=== PATIENT | female | born 1945 | race Caucasian/White ===

== ENCOUNTER 2023-01-04 12:38 | Outpatient (CLI) | payer MEDICARE, OTHER, SELFPAY | END 2023-01-04 12:39 | disposition home or self-care (01) | LOC: WOUND 12:41 | PROVIDERS: PCP Family Medicine; Visit Provider Surgery | DX: I87.311 Chronic venous hypertension (idiopathic) with ulcer of right lower extremity (principal); L97.811 Non-pressure chronic ulcer of other part of right lower leg limited to breakdown of skin; J44.9 Chronic obstructive pulmonary disease, unspecified; Z99.81 Dependence on supplemental oxygen | CPT/HCPCS: 97597; 99203 ==

== ENCOUNTER 2023-01-11 15:35 | Outpatient (CLI) | payer MEDICARE, OTHER, SELFPAY | END 2023-01-11 15:36 | disposition home or self-care (01) | PROVIDERS: PCP Family Medicine; Visit Provider Surgery | DX: I87.311 Chronic venous hypertension (idiopathic) with ulcer of right lower extremity (principal); L97.812 Non-pressure chronic ulcer of other part of right lower leg with fat layer exposed; J44.9 Chronic obstructive pulmonary disease, unspecified; Z99.81 Dependence on supplemental oxygen | CPT/HCPCS: 11042 ==

== ENCOUNTER 2023-04-08 15:37 | Inpatient (IN) | payer MEDICARE, OTHER, SELFPAY ==
[2023-04-08] VITALS (18 sets, daily range): BP systolic 80–114; BP diastolic 41–56; PULSE 57–73; RESP 16–22; TEMP 36.2–36.6; O2SAT 92–99; BMI 19.8; BMI 18.7
--- NOTE | 2023-04-08 16:12 | ED_ITS ---
HPI - General Adult General Time Seen by Provider: 16:13 Date Seen: 04/08/23 Chief complaint: Unspecified Complaint, Adult Stated complaint: Awful pain on butt Time Seen by Provider: 04/08/23 16:05 Source: patient and RN notes reviewed Mode of arrival: ambulatory Limitations: no limitations History of Present Illness HPI narrative: Princess is a 77-year-old female coming in with rectal pain that she states will not go away. Sometimes it is worse than others but there is baseline pain. This is not allowing her to sleep. It has been present for few days now. She does endorse that she is still defecating but there is some increased pain with this. Appetite is diminished because of her pain. Denies any nausea or vomiting. Does not really feel any abdominal pain per se. Has had colonoscopies before but very remotely. No blood in the stool. When the pain has been bad she has felt sweaty and then got chills but no documented fever. Arrival blood pressure was lower, looked at her old records and 2020 blood pressures were in the 120s. She is sitting up on the edge of the bed and is not symptomatic with this blood pressure at this time. She feels rectal pressure no matter what she does. She is oxygen-dependent COPD. Onset (ago): day(s) Related Data Home Medications Medication Instructions Recorded Confirmed albuterol sulfate 90 mcg/actuation 1 - 2 puff inhalation Q4H PRN 04/08/23 04/08/23 aerosol inhaler (Ventolin HFA) dyspnea atorvastatin 20 mg tablet 20 mg PO QPM 04/08/23 04/08/23 budesonide-formoterol HFA 160 2 puff inhalation BID 04/08/23 04/08/23 mcg-4.5 mcg/actuation aerosol inhaler (Symbicort) doxazosin 4 mg tablet 4 mg PO QPM 04/08/23 04/08/23 furosemide 20 mg tablet 20 mg PO QAM 04/08/23 04/08/23 latanoprost 0.005 % eye drops 1 drp ophthalmic (eye) QPM 04/08/23 04/08/23 lisinopril 20 mg tablet 20 mg PO DAILY 04/08/23 04/08/23 omeprazole 40 mg capsule,delayed 40 mg PO DAILY 04/08/23 04/08/23 release spironolactone 25 mg tablet 12.5 mg PO QAM 04/08/23 04/08/23 tramadol 50 mg tablet 50 mg PO 3XD PRN 04/08/23 04/08/23 Allergies Allergy/AdvReac Type Severity Reaction Status Date / Time codeine AdvReac Verified 04/08/23 16:00 Review of Systems Status of ROS: Reports: 6 or more systems reviewed and unremarkable except as noted in History and below Exam Const: Vital Signs, click to edit/add: Vital Signs - 24 hr 04/08/23 16:02 Temperature 97.1 F L Pulse Rate [Right Pulse Oximeter] 62 Respiratory Rate 22 Blood Pressure [Ri ght Upper Arm] 89/52 L Pulse Oximetry 93 Oxygen Delivery Me thod Nasal Cannula Oxygen Flow Rate 2 Documenting provider has reviewed patient's vital signs: yes Common normals: no apparent distress, oriented x3, no limitations and alert General appearance: cooperative, comfortable, well kempt, well developed and frail appearing Nutritional appearance: thin HENMT: Common normals: normocephalic, head/scalp atraumatic, hearing grossly normal bilaterally and external nose normal Head and scalp: normocephalic and atraumatic Face and sinus: normal facial exam Nose: external nose normal Eye: Common normals: PERRL, EOMs intact bilaterally, conjunctivae normal and no scleral icterus Conjunctiva: conjunctiva(e) normal Pupil: PERRL Neck & C-Spine: Common normals: full ROM, no lymphadenopathy, supple, no meningeal signs, no JVD and thyroid normal Thyroid: thyroid normal Resp: Common normals: normal respiratory effort, no retractions and no use of accessory muscles Other: Has some end-expiratory wheezing listening to her right side, more diminished breath sounds without wheezing on the left. Cardio: Common normals: no JVD Other: Heart sounds are quite distant, sounds regular, do not hear any murmur. GI: Common normals: Normal to inspection, nondistended, normoactive bowel sounds present, soft to palpation, non-tender, no hepatosplenomegaly and no masses Palpation: soft and no hepatosplenomegaly Other: Has some stool smearing in the gluteal region, anus appears normal. She has good rectal tone, complains of pain when I do the digital rectal exam but feel no masses in the vault. Stool appears nonbloody. Has atrophic labia majora, no visible external abnormality in the perineum. Extremity: Common normals: no calf tenderness and no pedal edema Neuro: Common normals: oriented x3 Sensorium/orientation: alert Meningeal signs: no meningeal signs Psych: Appearance: well kempt Course Course Hospital Course: Patient is complaining of significant pain, will establish an IV, give her 250 mL fluid bolus, initiate some low-dose fentanyl, 4 mg IV Zofran for premedication for nausea from the fentanyl. Will be proceeding with CT abdomen pelvis to rule out any intra-abdominal pathology. Will get full complement of labs. Reevaluation(s) Time of Reevaluation #1: 19:50 Reevaluation #1: Have reviewed with patient and her son the hyponatremia. She admits she has been feeling a little wobbly but not necessarily weak. Maybe balance has been a little more off as of late. Fentanyl did help a bit with her rectal pain, it has come back though. Did discuss trying an Enemeez to see if the lidocaine might make the rectal pain go away. Might be something we could at least try. She is able to get another dose of IV fentanyl at this time if wanted. I will talk to the hospitalist about admission given the low sodium. The CT is not showing any reason for the rectal pain. She has not given us urinalysis yet, or still waiting to collect stool to the fecal occult blood. Consultations Consultation #1: Have reviewed with the hospitalist. Dr. Chamberlain does accept. She was able to see in the records a sodium just over 3 months ago was 135. She has no new or hemoglobin than the 1 I was able to fine from 10/28/2020 which was 12.2. She was able see in the records a documentation of a flexible sigmoidoscopy done in 2000 which was done elsewhere. There is no up-to-date stool studies for blood or colonoscopy that she can see, just many canceled orders presumably from the patient not following up. Discussed my thought about trying an Enemeez with a lidocaine in it to see if it would clear the rectal pain for the patient. Dr. Chamberlain thinks that would be reasonable to try. She does accept this patient for hyponatremia. Time: 19:57 Vital Signs Vital signs: Initial Vital Signs Temperature 97.1 F L 04/08/23 16:02 Temperature Source Temporal Artery Scan 04/08/23 16:02 Pulse Rate 62 04/08/23 16:02 Respiratory Rate 22 04/08/23 16:02 Blood Pressure 89/52 L 04/08/23 16:02 Blood Pressure Mean 64 L 04/08/23 16:02 Blood Pressure Position Sitting 04/08/23 16:02 Pulse Oximetry 93 04/08/23 16:02 Oxygen Delivery Method Nasal Cannula 04/08/23 16:02 Oxygen Flow Rate 2 04/08/23 16:02 Vital Signs Temperature 97.1 F L 04/08/23 16:02 Pulse Rate 62 04/08/23 16:02 Respiratory Rate 22 04/08/23 16:02 Blood Pressure 89/52 L 04/08/23 16:02 Pulse Oximetry 93 04/08/23 16:02 Oxygen Delivery Method Nasal Cannula 04/08/23 16:02 Oxygen Flow Rate 2 04/08/23 16:02 Temperature 97.1 F L 04/08/23 16:02 Pulse Rate 62 04/08/23 16:02 Respiratory Rate 22 04/08/23 16:02 Blood Pressure 89/52 L 04/08/23 16:02 Pulse Oximetry 93 04/08/23 16:02 Oxygen Delivery Method Nasal Cannula 04/08/23 16:02 Oxygen Flow Rate 2 04/08/23 16:02 Medical Decision Making Lab Data Lab results reviewed: Yes I reviewed the patient's lab results Labs: Lab Results 04/08/23 Range/Units 16:30 WBC 7.27 (4.50-11.00) K/uL RBC 3.62 L (4.00-5.20) m/uL Hgb 10.7 L (12.0-16.0) gm/dL Hct 33.9 (33.0-51.0) % MCV 94 (80-100) fL MCH 30 (26-34) pg MCHC 32 (32-36) gm/dL RDW Coeff of Tonie 12.2 (11.5-15.5) % Plt Count 321 (140-440) K/uL Neut % (Auto) 84.6 H (42.0-72.0) % Lymph % (Auto) 5.8 L (20-44) % [place] % (Auto) 8.8 (0.0-11.0) % Eos % (Auto) 0.4 (0.0-7.0) % Baso % (Auto) 0.3 (0.0-3.0) % Neut # (Auto) 6.20 (1.7-7.0) K/uL Lymph # (Auto) 0.40 L (0.90-2.90) K/uL [place] # (Auto) 0.60 (0.00-0.90) K/UL Eos # (Auto) 0.03 (0.00-0.50) K/uL Baso # (Auto) 0.02 (0.00-0.30) K/uL Abs Immat Gran (auto) 0.01 (0.00-0.30) K/uL Imm/Tot Granulo (auto) 0.1 % VBG pH 7.363 (7.32-7.43) VBG pCO2 79 H* (40-50) mmHG VBG pO2 50.5 H (25-47) mmHG VBG HCO3 45 H (21-28) mmol/L Sodium 121 L* (135-149) mmol/L Potassium 4.7 (3.6-5.1) mmol/L Chloride 76 L (96-114) mmol/L Carbon Dioxide 40 H (20-32) mmol/L BUN 15 (7-30) mg/dL Creatinine 0.4 L (0.5-1.5) mg/dL Estimated Creat Clear 37.59 Estimated GFR 103 ml/min Glucose 95 (60-115) mg/dL Lactate 0.7 (0.5-1.9) mmol/L Calcium 9.2 (8.4-10.6) mg/dL Total Bilirubin 0.3 (0.1-1.5) mg/dL AST 31 (12-35) U/L ALT 26 (4-35) U/L Alkaline Phosphatase 83 (40-150) U/L C-Reactive Protein 1.1 H (0.5-1.0) mg/dL Total Protein 6.1 (6.0-8.3) g/dL Albumin 3.4 (3.3-5.0) g/dL Imaging Data CT scan - abdomen: Attestation: I have reviewed the pertinent imaging results. Radiologist's impression: Patient: PRINCESS MARIE Facility:?[facility] Patient ID:?[id number] Site Patient ID:?[id number]. Site :?[id number] Study:?CT Abdomen/Pelvis W/ 53CC [id number]/22/2023 6:04:12 PM Ordering Physician:Rigo Herndon Final Report: INDICATION: Rectal pain TECHNIQUE: CT abdomen and pelvis acquired with 53 mL Isovue 370 IV contrast. COMPARISON: None. FINDINGS: Lower chest: Emphysema. Liver: Unremarkable. Normal in size and attenuation. No masses. Gallbladder and bile ducts: Unremarkable. No stones or inflammation. No biliary dilatation. Pancreas: Unremarkable. No mass or inflammation. Spleen: Unremarkable. Normal in size. No masses. Adrenal glands: Unremarkable. No nodules. Kidneys: Dilated right renal pelvis and calices. UPJ obstruction suspected. Benign-appearing right renal cyst. GI tract: Unremarkable. Normal in caliber. No sign of mass or inflammation. Normal appendix. Vasculature: Atherosclerosis. Mesenteric arteries are patent. Lymph nodes: No lymphadenopathy. Omentum/Peritoneum/Abdominal Wall: Unremarkable. No sign of mass or infiltration. No free air or significant free fluid. Pelvis: Unremarkable. Bones: Unremarkable for age. IMPRESSION: 1. No acute findings. 2. Possible right kidney UPJ obstruction. Please note that all CT scans at this facility use dose modulation, iterative reconstruction, and/or weight-based dosing when appropriate to reduce radiation dose to as low as reasonably achievable. Dictated by Darrion Kyle MD @ 04/08/2023 6:36:13 PM (Electronic Signature) Chest x-ray: Attestation: I have reviewed the pertinent imaging results. My impression: Appreciate hyperinflation of her lungs but no acute pathology, no pneumonia. Await Radiology over-read. Radiologist's impression: Patient: PRINCESS MARIE Facility:?[facility] Patient ID:?[id number] Site Patient ID:?[id number]. Site :?[id number] Study:?XRay Chest Portable-04/08/2023 4:56:23 PM Ordering Physician:Rigo Hrendon Final Report: INDICATION: Wheezing. TECHNIQUE: Chest 1 views. COMPARISON: October 31, 2020. FINDINGS: Cardiovascular and mediastinum: Heart size and vasculature are normal in caliber and appearance. Lungs and pleural spaces: Hyperinflation. Bibasilar atelectasis/scarring. No sign of infiltrate or mass. No sign of pleural effusion. No pneumothorax. Bones and soft tissues: No significant findings. IMPRESSION: COPD. No acute or significant findings. Dictated by Joshua Win MD @ 04/08/2023 5:14:35 PM (Electronic Signature) Critical Care Time Critical Care Time Critical Care Time: No Discharge Plan Discharge Clinical Impression: Rectal pain, Acute hyponatremia Patient Disposition: Admitted As Observation Condition: Unchanged Prescriptions: No Action latanoprost 0.005 % drops 1 drp ophthalmic (eye) QPM atorvastatin 20 mg tablet 20 mg PO QPM lisinopril 20 mg tablet 20 mg PO DAILY omeprazole 40 mg capsule,delayed release(DR/EC) 40 mg PO DAILY tramadol 50 mg tablet 50 mg PO 3XD PRN spironolactone 25 mg tablet 12.5 mg PO QAM doxazosin 4 mg tablet 4 mg PO QPM furosemide 20 mg tablet 20 mg PO QAM albuterol sulfate [Ventolin HFA] 90 mcg/actuation HFA aerosol inhaler 1 - 2 puff INHALATION Q4H PRN (Reason: dyspnea) budesonide-formoterol [Symbicort] 160-4.5 mcg/actuation HFA aerosol inhaler 2 puff INHALATION BID Follow Up/Referrals: Reji Kern MD [Primary Care Provider] -
--- NOTE | 2023-04-08 16:18 | CRLHL7_ITS ---
For Patients: As a result of the Century Cures Act, medical imaging exams and procedure reports are released immediately into your electronic medical record. You may view this report before your referring provider. If you have questions, please contact your health care provider. INDICATION: Wheezing. TECHNIQUE: Chest 1 views. COMPARISON: October 31, 2020. FINDINGS: Cardiovascular and mediastinum: Heart size and vasculature are normal in caliber and appearance. Lungs and pleural spaces: Hyperinflation. Bibasilar atelectasis/scarring. No sign of infiltrate or mass. No sign of pleural effusion. No pneumothorax. Bones and soft tissues: No significant findings. IMPRESSION: COPD. No acute or significant findings. Dictated by Joshua Win MD @ 04/08/2023 5:14:35 PM (Electronically Signed)
--- NOTE | 2023-04-08 16:18 | CRLHL7_ITS ---
For Patients: As a result of the Century Cures Act, medical imaging exams and procedure reports are released immediately into your electronic medical record. You may view this report before your referring provider. If you have questions, please contact your health care provider. INDICATION: Rectal pain TECHNIQUE: CT abdomen and pelvis acquired with 53 mL Isovue 370 IV contrast. COMPARISON: None. FINDINGS: Lower chest: Emphysema. Liver: Unremarkable. Normal in size and attenuation. No masses. Gallbladder and bile ducts: Unremarkable. No stones or inflammation. No biliary dilatation. Pancreas: Unremarkable. No mass or inflammation. Spleen: Unremarkable. Normal in size. No masses. Adrenal glands: Unremarkable. No nodules. Kidneys: Dilated right renal pelvis and calices. UPJ obstruction suspected. Benign-appearing right renal cyst. GI tract: Unremarkable. Normal in caliber. No sign of mass or inflammation. Normal appendix. Vasculature: Atherosclerosis. Mesenteric arteries are patent. Lymph nodes: No lymphadenopathy. Omentum/Peritoneum/Abdominal Wall: Unremarkable. No sign of mass or infiltration. No free air or significant free fluid. Pelvis: Unremarkable. Bones: Unremarkable for age. IMPRESSION: 1. No acute findings. 2. Possible right kidney UPJ obstruction. Please note that all CT scans at this facility use dose modulation, iterative reconstruction, and/or weight-based dosing when appropriate to reduce radiation dose to as low as reasonably achievable. Dictated by Darrion Kyle MD @ 04/08/2023 6:36:13 PM (Electronically Signed)
[2023-04-08 16:40] LABS: Basophils Absolute Auto 0.02 K/uL (0.00-0.30); Basophils Percent Auto 0.3 % (0.0-3.0); Eosinophils Absolute Auto 0.03 K/uL (0.00-0.50); Eosinophils Percent Auto 0.4 % (0.0-7.0); Hematocrit 33.9 % (33.0-51.0); Hemoglobin* 10.7 gm/dL (12.0-16.0); Immature Granulocytes Abs Auto 0.01 K/uL (0.00-0.30); Immature Granulocytes Pct Auto 0.1 %; Lymphocytes Percent Auto 5.8 % (20-44); Mean Corpuscular HGB Conc 32 gm/dL (32-36); Mean Corpuscular Hemoglobin 30 pg (26-34); Mean Corpuscular Volume 94 fL (80-100); Monocytes Percent Auto 8.8 % (0.0-11.0); Neutrophils Percent Auto 84.6 % (42.0-72.0); Platelet Count* 321 K/uL (140-440); RDW Coefficient of Variation % 12.2 % (11.5-15.5); Red Blood Count 3.62 m/uL (4.00-5.20); White Blood Count* 7.27 K/uL (4.50-11.00)
[2023-04-08 16:42] LABS: HCO3 VBG 45 mmol/L (21-28); Lactate* 0.7 mmol/L (0.5-1.9); PO2 VBG 50.5 mmHG (25-47); pH VBG 7.363 (7.32-7.43)
[2023-04-08] MEDS: 0.9 % SODIUM CHLORIDE 250 ml 250 ML IV (16:47)
[2023-04-08] MEDS: fentaNYL 100 MCG/2 ML inj 25 MCG IVP ×2 (16:48→20:23)
[2023-04-08] MEDS: ONDANSETRON 2 MG/ML inj 4 MG IVP (16:48)
[2023-04-08 16:51] LABS: PCO2 VBG 79 mmHG (40-50)
[2023-04-08 16:54] LABS: Slide Review Reflex No
[2023-04-08 17:15] LABS: Albumin* 3.4 g/dL (3.3-5.0)
[2023-04-08 17:16] LABS: Chloride* 76 mmol/L (96-114); Potassium* 4.7 mmol/L (3.6-5.1)
[2023-04-08 17:18] LABS: Aspartate Amino Transferase* 31 U/L (12-35); Bilirubin Total* 0.3 mg/dL (0.1-1.5); Creatinine* 0.4 mg/dL (0.5-1.5); Est. Creatinine Clearance* 37.59; Estimated Glomerular Filt Rate 103 ml/min; Total Protein* 6.1 g/dL (6.0-8.3)
[2023-04-08 17:19] LABS: Alanine Aminotransferase* 26 U/L (4-35); Alkaline Phosphatase* 83 U/L (40-150); Blood Urea Nitrogen* 15 mg/dL (7-30); Calcium* 9.2 mg/dL (8.4-10.6); Glucose* 95 mg/dL (60-115)
[2023-04-08 17:21] LABS: Sodium* 121 mmol/L (135-149)
--- NOTE | 2023-04-08 17:21 | ED.NURSE ---
Call from lab for critical result: sodium 121. and RN notified.
[2023-04-08 17:23] LABS: C Reactive Protein* 1.1 mg/dL (0.5-1.0)
[2023-04-08 17:25] LABS: Carbon Dioxide* 40 mmol/L (20-32)
[2023-04-08] MEDS: DOCUSATE SODIUM/BENZOCAINE 5 ML ENEMA PR (20:23)
--- NOTE | 2023-04-08 21:22 | P.IMHP_ITS ---
Hospitalist- H&P: HPI History of Present Illness Time Seen by Provider: 21:22 Date Seen: 04/08/23 Chief complaint: Awful pain on butt Narrative: Princess Jones is a 77 year old female who is oxygen dependent for COPD who presented through the ER for rectal pain and was found to have low sodium. She started having a constant, sharp pain in her rectum a few days ago. She does not recall anything that started it, and she denies anything that makes it better or worse, although the rectal exam in the ER caused her a bit of pain. When she defecates over the last few days, she feels hot and sweaty. She denies change of stool. She denies constipation or diarrhea. Denies hemorrhoids, melena or hematochezia. She recalls having a colonoscopy through [facility] 5-10 years ago, and thinks it was unremarkable. She does not know if it was recommended for her to have any more. She denies any recent illness, focal numbness, weakness or tingling. She has not had any diet or medication changes. When the rectal pain started a few days ago, she started to feel wobbly and like I was weak. Review of Systems Status of ROS: Reports: 10 or more systems reviewed and unremarkable except as noted in History and below [facility] Medical History (Updated 04/08/23 @ 23:22 by Addie Chamberlain MD) Bilateral carotid bruits ?R09.89 - Other specified symptoms and signs involving the circulatory and respiratory systems (ICD-10) Oxygen dependent ?Z99.81 - Dependence on supplemental oxygen (ICD-10) Bilateral lower extremity edema ?R60.0 - Localized edema (ICD-10) Gastric ulcer ?K25.9 - Gastric ulcer, unspecified as acute or chronic, without hemorrhage or perforation (ICD-10) Impaired fasting blood sugar ?R73.01 - Impaired fasting glucose (ICD-10) COPD (chronic obstructive pulmonary disease) ?J44.9 - Chronic obstructive pulmonary disease, unspecified (ICD-10) Osteoporosis ?M81.0 - Age-related osteoporosis without current pathological fracture (ICD- 10) Amblyopia ?H53.009 - Unspecified amblyopia, unspecified eye (ICD-10) Left bundle branch block ?I44.7 - Left bundle-branch block, unspecified (ICD-10) Essential hypertension ?I10 - Essential (primary) hypertension (ICD-10) Surgical History (Updated 04/08/23 @ 21:15 by Addie Chamberlain MD) H/O section ?Z98.891 - History of uterine scar from previous surgery (ICD-10) Hx of tonsillectomy ?Z90.89 - Acquired absence of other organs (ICD-10) H/O: hysterectomy ?Z90.710 - Acquired absence of both cervix and uterus (ICD-10) Hx of appendectomy ?Z90.49 - Acquired absence of other specified parts of digestive tract (ICD- 10) H/O flexible sigmoidoscopy (~2000) ?Z98.890 - Other specified postprocedural states (ICD-10) History of esophagogastroduodenoscopy (EGD) ?Z98.890 - Other specified postprocedural states (ICD-10) History of open reduction and internal fixation (ORIF) procedure ?Z98.890 - Other specified postprocedural states (ICD-10) Family History (Updated 04/08/23 @ 21:16 by Addie Chamberlain MD) Maternal Grandmother Colon cancer Mother Colon cancer Myocardial infarction Rheumatic fever Social History (Updated 04/08/23 @ 21:30 by Addie Chamberlain MD) Narrative: to [place], who's here with her. They live in a house, mainly on 1 level. Quit tobacco use 15-20 years ago, 1/2 ppd, maybe for 35-40 years. Denies alcohol use. DNR/DNI What is your current living situation?: I presently have a place to live Problems where you live: no known problems Problems where you live details: NA In the past 12 months, utilities in danger of being shut off: no In the past 12 mos, have been you worried that your food would run out before you had money to buy more?: never true In the past 12 mos, the food you bought just didn't last and you didn't have money to buy more?: never true Smoking Status: Never smoker How often do you have a drink containing alcohol: never AUDIT-C Alcohol total score: 0 Non-prescribed substance use: denies use Caffeine: No How often does anyone, including family, friends and others, physically hurt you : never How often does anyone, including family, friends and others, insult or talk down to you: never How often does anyone, including family, friends and others, threaten you with harm: never How often does anyone, including family, friends and others, scream or curse at you: never service: No Meds Home Medications and Allergies Home Medications Medication Instructions Recorded Confirmed Type albuterol sulfate 90 mcg/actuation 1 - 2 puff inhalation Q4H PRN 04/08/23 04/08/23 History aerosol inhaler (Ventolin HFA) dyspnea atorvastatin 20 mg tablet 20 mg PO QPM 04/08/23 04/08/23 History budesonide-formoterol HFA 160 2 puff inhalation BID 04/08/23 04/08/23 History mcg-4.5 mcg/actuation aerosol inhaler (Symbicort) doxazosin 4 mg tablet 4 mg PO QPM 04/08/23 04/08/23 History furosemide 20 mg tablet 20 mg PO QAM 04/08/23 04/08/23 History latanoprost 0.005 % eye drops 1 drp ophthalmic (eye) QPM 04/08/23 04/08/23 History lisinopril 20 mg tablet 20 mg PO DAILY 04/08/23 04/08/23 History omeprazole 40 mg capsule,delayed 40 mg PO DAILY 04/08/23 04/08/23 History release spironolactone 25 mg tablet 12.5 mg PO QAM 04/08/23 04/08/23 History tramadol 50 mg tablet 50 mg PO 3XD PRN 04/08/23 04/08/23 History Allergies Allergy/AdvReac Type Severity Reaction Status Date / Time codeine AdvReac Verified 04/08/23 16:00 Exam Narrative: Exam Narrative: General: No acute distress. Awake alert oriented x3. HEENT: Normocephalic atraumatic, pupils equally round and reactive to light and accommodation. Oropharynx clear. Mucous membranes are moist. No cervical lymphadenopathy or thyromegaly, bilateral carotid bruits present. No JVD. Cardiovascular: Regular rate and rhythm. No murmurs, gallops, or rubs. Chest: No increased work of breathing. Expiratory wheezes throughout, prolonged expiratory phase. Abdomen: Bowel sounds present. Soft, nondistended, nontender. No hepatosplenomegaly or masses. Rectal: Since she already had a rectal exam done in the emergency department and this was painful, I did not repeated, but I did visualize her anus. She has multiple old, healed hemorrhoid tags. Extremities: 2+ bilateral pretibial pitting edema, no cyanosis or clubbing. Skin: No jaundice, no pallor, no rashes. Neuro: Grossly intact. No focal deficits. Const: Vital Signs, click to edit/add: Vital Signs - 24 hr 04/08/23 16:02 Temperature 97.1 F L Pulse Rate [Right Pulse Oximeter] 62 Respiratory Rate 22 Blood Pressure [Ri ght Upper Arm] 89/52 L Pulse Oximetry 93 Oxygen Delivery Me thod Nasal Cannula Oxygen Flow Rate 2 Documenting provider has reviewed patient's vital signs: yes Hospitalist - H&P: Result Labs Labs: Short CBC 04/08/23 Range/Units 16:30 WBC 7.27 (4.50-11.00) K/uL Hgb 10.7 L (12.0-16.0) gm/dL Hct 33.9 (33.0-51.0) % Plt Count 321 (140-440) K/uL BMP 04/08/23 16:30 Sodium 121 L* Potassium 4.7 Chloride 76 L Carbon Dioxide 40 H BUN 15 Creatinine 0.4 L Glucose 95 Calcium 9.2 Liver Function 04/08/23 Range/Units 16:30 Total Bilirubin 0.3 (0.1-1.5) mg/dL AST 31 (12-35) U/L ALT 26 (4-35) U/L Alkaline Phosphatase 83 (40-150) U/L Albumin 3.4 (3.3-5.0) g/dL Ordering Physician: Katrina Wells M.D. Date of Service: 04/08/23 Procedure(s): CT abdomen pelvis w con Accession Number(s): [id number] cc: Reji Kern M.D.; Katrina Wells M.D.~ For Patients: As a result of the 21st Century Cures Act, medical imaging exams and procedure reports are released immediately into your electronic medical record. You may view this report before your referring provider. If you have questions, please contact your health care provider. INDICATION: Rectal pain TECHNIQUE: CT abdomen and pelvis acquired with 53 mL Isovue 370 IV contrast. COMPARISON: None. FINDINGS: Lower chest: Emphysema. Liver: Unremarkable. Normal in size and attenuation. No masses. Gallbladder and bile ducts: Unremarkable. No stones or inflammation. No biliary dilatation. Pancreas: Unremarkable. No mass or inflammation. Spleen: Unremarkable. Normal in size. No masses. Adrenal glands: Unremarkable. No nodules. Kidneys: Dilated right renal pelvis and calices. UPJ obstruction suspected. Benign-appearing right renal cyst. GI tract: Unremarkable. Normal in caliber. No sign of mass or inflammation. Normal appendix. Vasculature: Atherosclerosis. Mesenteric arteries are patent. Lymph nodes: No lymphadenopathy. Omentum/Peritoneum/Abdominal Wall: Unremarkable. No sign of mass or infiltration. No free air or significant free fluid. Pelvis: Unremarkable. Bones: Unremarkable for age. IMPRESSION: 1. No acute findings. 2. Possible right kidney UPJ obstruction. Please note that all CT scans at this facility use dose modulation, iterative reconstruction, and/or weight-based dosing when appropriate to reduce radiation dose to as low as reasonably achievable. Dictated by Darrion Kyle MD @ 04/08/2023 6:36:13 PM (Electronically Signed) Ordering Physician: Katrina Wells M.D. Date of Service: 04/08/23 Procedure(s): XR chest 1V portable Accession Number(s): [id number] cc: Reji Kern M.D.; Katrina Wells M.D.~ For Patients: As a result of the Cures Act, medical imaging exams and procedure reports are released immediately into your electronic medical record. You may view this report before your referring provider. If you have questions, please contact your health care provider. INDICATION: Wheezing. TECHNIQUE: Chest 1 views. COMPARISON: October 31, 2020. FINDINGS: Cardiovascular and mediastinum: Heart size and vasculature are normal in caliber and appearance. Lungs and pleural spaces: Hyperinflation. Bibasilar atelectasis/scarring. No sign of infiltrate or mass. No sign of pleural effusion. No pneumothorax. Bones and soft tissues: No significant findings. IMPRESSION: COPD. No acute or significant findings. Dictated by Joshua Win MD @ 04/08/2023 5:14:35 PM (Electronically Signed) Assessment and Plan Assessment and plan (1) Acute hyponatremia: Problem comment: Cause is unclear. CXR negative for mass. She is on several diuretics, which I will hold. These will make a FeNa inaccurate and some of the labs for this are sent out and would not be available in a timely manner. Start normal saline and a free water restriction. Hold diuretics as above. Recheck sodium at 3:00 a.m. and again in the morning. Goal is slow rise of sodium of 6 millimoles per L over 24 hours. Status: Acute (2) Rectal pain: Problem comment: No obvious cause. Possibly UPJ obstruction vs Coccydynia vs other. Obtain renal US to confirm if obstruction or not. May need urologic consultation for cystoscopy vs. further work up as an outpatient, including possibly a colonoscopy. She has h/o hysterectomy, but may benefit from outpatient gyne exam to further investigate. Status: Acute (3) UPJ (ureteropelvic junction) obstruction: Problem comment: Seen on abd/pelvis CT - possible. Unclear if this is contributing to rectal pain. Obtain renal US. Status: Suspected (4) Oxygen dependent: Problem comment: COPD, 2.5L/min continuously Status: Chronic (5) COPD (chronic obstructive pulmonary disease): Status: Chronic (6) Essential hypertension: Problem comment: BP on low side. I will be holding diuretics for hyponatremia. Monitor. Status: Chronic
[2023-04-08] MEDS: 0.9 % SODIUM CHLORIDE 1000 ml 1,000 ML 50 ML IV (22:40)
--- NOTE | 2023-04-08 23:03 | PC.NURSE ---
Admit [id number]- Patient arrives to floor at approximately 2100 accompanied by . She has wheezes on inhale and exhale. Bilateral extremities are edematous, pitting. She remains on 2.5L O2. Denies SOB. No urine or stool to yet.
[2023-04-08] MEDS: ENOXAPARIN 30 MG/0.3ML INJ SUBCUT (23:35)
[2023-04-09 00:10] LABS: Appearance Urine Clear (Clear); Bilirubin Urine Negative (Negative); Blood Urine Negative (Negative); Color Urine Yellow (Yellow); Glucose Urine Negative (Negative); Ketones Urine Negative (Negative); Leukocyte Esterase Urine Negative (Negative); Nitrite Urine Negative (Negative); Protein Urine Negative (Negative); Specific Gravity Urine 1.015 (1.000-1.030); pH Urine 6.5 (5.0-8.5)
[2023-04-09 00:16] LABS: RBC Urine 0-2 (0-2); WBC Urine 0-2 (0-5)
[2023-04-09] MEDS: TRAMADOL HCL 50 MG TABLET PO ×2 (02:55→18:08)
[2023-04-09 03:00] VITALS: BP 130/43; PULSE 66; RESP 18; TEMP 36.6; O2SAT 95
[2023-04-09 04:51] LABS: Basophils Absolute Auto 0.01 K/uL (0.00-0.30); Basophils Percent Auto 0.2 % (0.0-3.0); Eosinophils Absolute Auto 0.06 K/uL (0.00-0.50); Eosinophils Percent Auto 1.1 % (0.0-7.0); Hematocrit 31.2 % (33.0-51.0); Hemoglobin* 9.7 gm/dL (12.0-16.0); Lymphocytes Percent Auto 8.7 % (20-44); Mean Corpuscular HGB Conc 31 gm/dL (32-36); Mean Corpuscular Hemoglobin 30 pg (26-34); Mean Corpuscular Volume 95 fL (80-100); Monocytes Percent Auto 11.5 % (0.0-11.0); Neutrophils Percent Auto 78.5 % (42.0-72.0); Platelet Count* 269 K/uL (140-440); RDW Coefficient of Variation % 12.4 % (11.5-15.5); Red Blood Count 3.28 m/uL (4.00-5.20)
[2023-04-09 04:52] LABS: Slide Review Reflex No
[2023-04-09 05:04] LABS: Chloride* 80 mmol/L (96-114); Potassium* 4.4 mmol/L (3.6-5.1)
[2023-04-09 05:07] LABS: Blood Urea Nitrogen* 12 mg/dL (7-30); Creatinine* 0.3 mg/dL (0.5-1.5); Est. Creatinine Clearance* 35.55; Estimated Glomerular Filt Rate 111 ml/min; Glucose* 91 mg/dL (60-115)
[2023-04-09 05:08] LABS: Calcium* 8.5 mg/dL (8.4-10.6)
[2023-04-09 05:16] LABS: Carbon Dioxide* 41 mmol/L (20-32); Sodium* 122 mmol/L (135-149)
--- NOTE | 2023-04-09 05:47 | PC.NURSE ---
Patient alert and oriented x 4. Pain to rectal area reported at 3-4/10, prn tramadol administered at 0245 with effective results. Denies any nausea or vomiting, bowel sounds active x 4 quadrants. Lung sound in bilateral lower lobes have inspiratory and expiratory wheezes, shortness of breath with exertion. Patient is chronically on O2 at home, currently on 2.5L per nasal cannula and O2 sats maintaining at >95%. Sodium drawn at 0420 due to lab machine not working, current sodium 122, orders to call if sodium is 121 or lower or greater than 125.
[2023-04-09 07:00] VITALS: BP 127/49; PULSE 63; RESP 22; TEMP 36.6; O2SAT 100
--- NOTE | 2023-04-09 07:00 | CRLHL7_ITS ---
For Patients: As a result of the Cures Act, medical imaging exams and procedure reports are released immediately into your electronic medical record. You may view this report before your referring provider. If you have questions, please contact your health care provider. INDICATION: Possible UPJ obstruction on CT COMPARISON: Same day CT abdomen and pelvis TECHNIQUE: Grayscale and color Doppler imaging of the bilateral kidneys and urinary bladder. FINDINGS: The left kidney measures 12.2 x 5.1 x 5.8 cm. There is no hydronephrosis or nephrolithiasis. There is no mass on the provided images. As seen on same day CT, the right kidney demonstrates marked hydronephrosis and is difficult to measure on ultrasound. There is a right-sided ureteral jet. There is an anechoic simple cyst in the lower pole measuring 1.9 x 1.4 x 1.8 cm. There is no nephrolithiasis on the provided images. Transverse and longitudinal images demonstrates an unremarkable appearance of the urinary bladder. IMPRESSION: 1. Marked right-sided hydronephrosis. There is a right-sided ureteral jet. 2. No left-sided hydronephrosis or nephrolithiasis. Dictated by Rita Robles MD @ 04/09/2023 10:10:59 AM (Electronically Signed)
[2023-04-09] MEDS: 0.9 % SODIUM CHLORIDE 1000 ml 1,000 ML 75 ML IV (10:19)
[2023-04-09] MEDS: OMEPRAZOLE 20 MG CAPSULE DR 40 MG PO (10:19)
[2023-04-09] MEDS: BUDESONIDE 0.5 MG/2ML NEB NEB ×2 (10:25→21:27)
--- NOTE | 2023-04-09 10:34 | PM.IMPN1 ---
Progress Note: A&P Assessment and plan (1) Acute hyponatremia: Problem details: - CXR and chest CT negative for mass, may be 2/2 decreased po intake in the setting of continued free water intake - holding home Lasix, Spironolactone - on IV NS + free water restriction, holding diuretics, follow sodium closely to ensure appropriate rate of correction Status: Acute (2) Rectal pain: Problem details: - source unclear; renal ultrasound exhibits + urinary jet - unfortunately, we do not have access to topical vasodilators to trial for pain control, will review with pharmacy again during the week - bowel regimen and close monitoring, may need GI vs Gynecology vs pelvic PT followup Status: Acute (3) UPJ (ureteropelvic junction) obstruction: Problem details: - reassuring ultrasound Status: Suspected (4) Oxygen dependent: Problem details: - COPD with significant hypercarbia, on 2.5L/min continuously at home - RT following Status: Chronic (5) COPD (chronic obstructive pulmonary disease): Problem details: - severe, oxygen dependent disease - minimally ambulatory 2/2 PATINO, typically uses a wheelchair - son also notes that patient is eating less 2/2 dypsnea Status: Chronic (6) Essential hypertension: Problem details: - BP on the low side, holding diuretics, continue to follow Status: Chronic Plan - per above - son updated in hallway, questions answered. He notes that Vicenta has been having fairly significant COPD disease progression this year, which has contributed to depression - Lovenox for ppx Subjective Date Seen: 04/09/23 Interval history: Princess is still having some rectal pain this morning, but it's better than yesterday. She feels weak, no other concerns for hospitalist this morning. Exam Narrative: Exam Narrative: GEN: Alert and oriented, sitting comfortably in bed, 4 word dyspnea HEENT: EOMIs bilaterally, no scleral icterus CV: RRR, No concerning murmurs, rubs, or gallops R: Decreased lung sounds throughout, mild bibasilar wheezing Ext: wwp, no concerning edema Skin: No concerning skin lesions or rashes on exposed skin Neuro: Nonfocal Psych: Appropriate Const: Vital Signs, click to edit/add: Vital Signs - 24 hr 04/08/23 16:02 04/08/23 17:01 04/08/23 17:02 Temperature 97.1 F L Pulse Rate 57 L 57 L Pulse Rate [Left P ulse Oximeter] Pulse Rate [Right Pulse Oximeter] 62 Respiratory Rate 22 16 Blood Pressure 80/41 L Blood Pressure [Ri ght Arm] Blood Pressure [Ri ght Upper Arm] 89/52 L Pulse Oximetry 93 97 97 Oxygen Delivery Me thod Nasal Cannula Nasal Cannula Oxygen Flow Rate 2 2.5 04/08/23 17:04 04/08/23 17:15 04/08/23 17:30 Temperature Pulse Rate 58 L 59 L 59 L Pulse Rate [Left P ulse Oximeter] Pulse Rate [Right Pulse Oximeter] Respiratory Rate 16 Blood Pressure 82/42 L Blood Pressure [Ri ght Arm] Blood Pressure [Ri ght Upper Arm] Pulse Oximetry 96 97 97 Oxygen Delivery Me thod Nasal Cannula Nasal Cannula Oxygen Flow Rate 2.5 2.5 04/08/23 17:32 04/08/23 17:45 04/08/23 18:36 Temperature Pulse Rate 60 60 63 Pulse Rate [Left P ulse Oximeter] Pulse Rate [Right Pulse Oximeter] Respiratory Rate 16 16 Blood Pressure 90/45 L 98/42 L Blood Pressure [Ri ght Arm] Blood Pressure [Ri ght Upper Arm] Pulse Oximetry 97 98 99 Oxygen Delivery Me thod Nasal Cannula Nasal Cannula Oxygen Flow Rate 2.5 2.5 04/08/23 18:37 04/08/23 18:45 04/08/23 19:00 Temperature Pulse Rate 62 63 65 Pulse Rate [Left P ulse Oximeter] Pulse Rate [Right Pulse Oximeter] Respiratory Rate Blood Pressure Blood Pressure [Ri ght Arm] Blood Pressure [Ri ght Upper Arm] Pulse Oximetry 99 99 99 Oxygen Delivery Me thod Oxygen Flow Rate 04/08/23 19:01 04/08/23 20:23 04/08/23 20:24 Temperature Pulse Rate 64 60 60 Pulse Rate [Left P ulse Oximeter] Pulse Rate [Right Pulse Oximeter] Respiratory Rate 16 16 Blood Pressure 98/56 L 112/51 L Blood Pressure [Ri ght Arm] Blood Pressure [Ri ght Upper Arm] Pulse Oximetry 99 95 96 Oxygen Delivery Me thod Nasal Cannula Oxygen Flow Rate 2.5 04/08/23 20:30 04/08/23 21:12 04/08/23 23:00 Temperature 97.6 F 97.9 F Pulse Rate 63 Pulse Rate [Left P ulse Oximeter] 73 Pulse Rate [Right Pulse Oximeter] Respiratory Rate 20 20 Blood Pressure Blood Pressure [Ri ght Arm] 102/51 L 114/46 L Blood Pressure [Ri ght Upper Arm] Pulse Oximetry 96 92 97 Oxygen Delivery Me thod Nasal Cannula Nasal Cannula Oxygen Flow Rate 2.5 2.5 04/09/23 03:00 Temperature 97.8 F Pulse Rate Pulse Rate [Left P ulse Oximeter] 66 Pulse Rate [Right Pulse Oximeter] Respiratory Rate 18 Blood Pressure Blood Pressure [Ri ght Arm] 130/43 L Blood Pressure [Ri ght Upper Arm] Pulse Oximetry 95 Oxygen Delivery Me thod Nasal Cannula Oxygen Flow Rate 2.5 Labs Labs: Laboratory Results - last 24 hr 04/08/23 04/08/23 04/09/23 16:30 22:55 04:45 WBC 7.27 5.30 RBC 3.62 L 3.28 L Hgb 10.7 L 9.7 L Hct 33.9 31.2 L MCV 94 95 MCH 30 30 MCHC 32 31 L RDW Coeff of Tonie 12.2 12.4 Plt Count 321 269 Neut % (Auto) 84.6 H 78.5 H Lymph % (Auto) 5.8 L 8.7 L Walsh % (Auto) 8.8 11.5 H Eos % (Auto) 0.4 1.1 Baso % (Auto) 0.3 0.2 Neut # (Auto) 6.20 4.20 Lymph # (Auto) 0.40 L 0.50 L Walsh # (Auto) 0.60 0.60 Eos # (Auto) 0.03 0.06 Baso # (Auto) 0.02 0.01 Abs Immat Gran (auto) 0.01 0.00 Imm/Tot Granulo (auto) 0.1 0.0 VBG pH 7.363 VBG pCO2 79 H* VBG pO2 50.5 H VBG HCO3 45 H Sodium 121 L* 122 L* Potassium 4.7 4.4 Chloride 76 L 80 L Carbon Dioxide 40 H 41 H* BUN 15 12 Creatinine 0.4 L 0.3 L Estimated Creat Clear 37.59 35.55 Estimated GFR 103 111 Glucose 95 91 Lactate 0.7 Calcium 9.2 8.5 Total Bilirubin 0.3 AST 31 ALT 26 Alkaline Phosphatase 83 C-Reactive Protein 1.1 H Total Protein 6.1 Albumin 3.4 Urine Color Yellow Urine Appearance Clear Urine pH 6.5 Ur Specific [place] 1.015 Urine Protein Negative Urine Glucose (UA) Negative Urine Ketones Negative Urine Blood Negative Urine Nitrite Negative Urine Bilirubin Negative Urine Urobilinogen 1.0 Ur Leukocyte Esterase Negative Urine RBC 0-2 Urine WBC 0-2 Ur Squamous Epith Cells None Urine Bacteria None
[2023-04-09 12:11] VITALS: RESP 22; O2SAT 90
--- NOTE | 2023-04-09 12:14 | RESP.RT ---
Patient sitting up in chair, finishing Nebulizer treatment. Breathing regular, pursed lip style, with long expiratory phase. Right lung field with expiratory wheeze, diminished, Left lung field diminished, all vázquez have fine crackles noted. Patient has Hx of COPD and Emphysema. CXR: hyperinflation. Patient uses Oxygen at 2.5 Lpm Nasal Cannula and Albuterol MDI and Nebulizer treatments.
[2023-04-09 12:43] LABS: Sodium* 124 mmol/L (135-149)
--- NOTE | 2023-04-09 13:10 | CRLHL7_ITS ---
For Patients: As a result of the Century Cures Act, medical imaging exams and procedure reports are released immediately into your electronic medical record. You may view this report before your referring provider. If you have questions, please contact your health care provider. INDICATION: COPD, hyponatremia TECHNIQUE: Noncontrast CT of the chest was performed. Coronal and sagittal reformats were obtained on an independent workstation. COMPARISON: CT abdomen and pelvis on April 08, 2023.. FINDINGS: THYROID: Unremarkable. LUNGS: No suspicious pulmonary nodules or consolidation. Moderate apical predominant centrilobular and paraseptal emphysema. PLEURA: No pleural effusion or pneumothorax. MEDIASTINUM: Patent central airways. Normal esophagus. LYMPH NODES: No enlarged axillary, mediastinal or hilar lymph nodes by size criteria. HEART: Normal heart size. No pericardial effusion. Moderate calcification of the thoracic aorta. CORONARY ARTERY CALCIFICATION: Present. CHEST WALL: Unremarkable. LIMITED UPPER ABDOMEN: Marked right-sided hydronephrosis with retained contrast in the collecting system. Moderate atherosclerotic calcification of the visualized abdominal aorta. BONES: No definite acute fracture. Respiratory motion at the lung bases limit sensitivity for a subtle nondisplaced anterior rib fracture. No aggressive appearing lytic or blastic osseous lesion. IMPRESSION: 1. No suspicious pulmonary nodule or consolidation. - LUNG-RADS CATEGORY: 1: Negative continue annual screening with low-dose CT chest in 12 months. 2. Moderate apical predominant centrilobular and paraseptal emphysema. 3. Marked right-sided hydronephrosis with retained contrast in the collecting system. Please see same day CT abdomen pelvis for additional findings. Please note that all CT scans at this facility use dose modulation, iterative reconstruction, and/or weight-based dosing when appropriate to reduce radiation dose to as low as reasonably achievable. Dictated by Rita Robles MD @ 04/09/2023 4:07:46 PM (Electronically Signed)
[2023-04-09] MEDS: ALBUTEROL INHALER 2 PUFF IH ×2 (14:33→18:07)
[2023-04-09 15:00] VITALS: BP 119/52; PULSE 72; RESP 22; TEMP 36.6; O2SAT 94
[2023-04-09] MEDS: ATORVASTATIN 10 MG TABLET 20 MG PO (18:07)
[2023-04-09] MEDS: DOXAZOSIN 4 MG TABLET PO (18:07)
[2023-04-09] MEDS: LATANOPROST 0.005% OPHTH 1 DROP EYE-BOTH (18:08)
[2023-04-09] MEDS: ACETAMINOPHEN 325 MG TABLET 650 MG PO (18:09)
[2023-04-09 18:11] LABS: Sodium* 124 mmol/L (135-149)
--- NOTE | 2023-04-09 18:26 | PC.NURSE ---
Shift note [id number]: Pt friendly and cooperative. Chronically uses 2.5L/O2 via NC, Spo2 seems to trend high at rest, 94% or higher. Attempted to titrate and pt significantly desats to 77% with minimal exertion. Prolonged rebound period at rest. Pt continues to use 2.5L at this time and SpO2 94% at last check while seated in her chair. LS diminished with some expiratory wheeze in upper lobes. Rates rectal pain 4-6/10, PRN Tramadol and Tylenol given as well as a pillow to sit on. Pt verbalizes these interventions have helped decrease her discomfort. Pt also states she feels quite constipated, standing orders placed for intervention. Sodium labs unchanged from afternoon draw, updated and 3% hypertonic saline started at 30cc/hr and ordered to run for 2 hours. Pt is to then have another sodium check. Pt is maintaining 1500cc FR, tolerating well.
[2023-04-09 20:00] VITALS: BP 102/40; PULSE 64; RESP 20; TEMP 36.6; O2SAT 92
[2023-04-09] MEDS: bisacodyL 10 MG SUPP.RECT PR (20:41)
[2023-04-09] MEDS: SODIUM CHLORIDE 0.9 % (FLUSH) 10 ML SYRINGE 5 ML IVF (20:42)
[2023-04-09 20:55] LABS: Sodium* 123 mmol/L (135-149)
[2023-04-09] MEDS: ENOXAPARIN 30 MG/0.3ML INJ SUBCUT (22:08)
[2023-04-09 23:00] VITALS: BP 112/42; PULSE 71; RESP 20; TEMP 36.6; O2SAT 93
[2023-04-09] MEDS: DOCUSATE SODIUM 100 MG CAPSULE PO (23:30)
[2023-04-10 00:09] LABS: Sodium* 123 mmol/L (135-149)
[2023-04-10] MEDS: 0.9 % SODIUM CHLORIDE 1000 ml 1,000 ML 75 ML IV ×2 (00:30→14:04)
[2023-04-10] MEDS: bisacodyL 10 MG SUPP.RECT PR (05:14)
[2023-04-10] MEDS: ACETAMINOPHEN 325 MG TABLET 650 MG PO ×3 (05:24→18:25)
[2023-04-10 05:29] VITALS: BP 162/63; PULSE 73; RESP 20; TEMP 36.6; O2SAT 89
[2023-04-10 06:22] LABS: Fecal Occult Blood* Positive (Negative)
--- NOTE | 2023-04-10 06:49 | PC.NURSE ---
Shift note: The pt has been c/o mild to moderate rectal pain intermittently; the pt requested suppository med to move her bowel; Last night x1 given without any bowel movement. This AM the pt requested the second suppository ; given with x2 small soft brown BM, stool sample was obtained and sent to the lab. The pt has been declining PRN pain medications stating the pain was not bothersome but this AM she asked for Tylenol - given with pain improvement. The pt has been on 2.5-3L of oxygen via NC with Spo2 88-94%; the pt has been very short of breath with exertion. Sodium lab was 123 at midnight, Dr Chamberlain was notified By telephone; an order for IVF NS at 75 ml/hr (has been running) and 1 tab sodium chloride received ( will be started at 0800). The pt has been up and down ; unable to sleep throughout the night.
[2023-04-10 07:06] LABS: HCO3 VBG 38 mmol/L (21-28); Ionized Calcium* 1.13 mmol/L (1.11-1.30); PCO2 VBG 55 mmHG (40-50); PO2 VBG 62.9 mmHG (25-47); pH VBG 7.447 (7.32-7.43)
[2023-04-10 07:30] LABS: Basophils Absolute Auto 0.02 K/uL (0.00-0.30); Basophils Percent Auto 0.4 % (0.0-3.0); Chloride* 84 mmol/L (96-114); Eosinophils Absolute Auto 0.01 K/uL (0.00-0.50); Eosinophils Percent Auto 0.2 % (0.0-7.0); Hematocrit 36.2 % (33.0-51.0); Hemoglobin* 11.2 gm/dL (12.0-16.0); Immature Granulocytes Abs Auto 0.03 K/uL (0.00-0.30); Immature Granulocytes Pct Auto 0.5 %; Lymphocytes Percent Auto 7.6 % (20-44); Mean Corpuscular HGB Conc 31 gm/dL (32-36); Mean Corpuscular Hemoglobin 29 pg (26-34); Mean Corpuscular Volume 94 fL (80-100); Monocytes Percent Auto 9.2 % (0.0-11.0); Neutrophils Percent Auto 82.1 % (42.0-72.0); Platelet Count* 314 K/uL (140-440); Potassium* 4.7 mmol/L (3.6-5.1); RDW Coefficient of Variation % 12.2 % (11.5-15.5); Red Blood Count 3.87 m/uL (4.00-5.20); White Blood Count* 5.65 K/uL (4.50-11.00)
[2023-04-10 07:33] LABS: Blood Urea Nitrogen* 12 mg/dL (7-30); Calcium* 9.1 mg/dL (8.4-10.6); Carbon Dioxide* 38 mmol/L (20-32); Creatinine* 0.2 mg/dL (0.5-1.5); Est. Creatinine Clearance* 35.55; Estimated Glomerular Filt Rate 122 ml/min; Glucose* 92 mg/dL (60-115); Magnesium* 1.7 mg/dL (1.5-2.6); Slide Review Reflex No
[2023-04-10 07:38] LABS: Sodium* 123 mmol/L (135-149)
[2023-04-10 08:29] VITALS: BP 165/59; PULSE 75; RESP 18; TEMP 36.3; O2SAT 96
[2023-04-10] MEDS: OMEPRAZOLE 20 MG CAPSULE DR 40 MG PO (08:38)
[2023-04-10] MEDS: SODIUM CHLORIDE 1 GM TABLET PO ×2 (08:38→11:45)
[2023-04-10] MEDS: ALBUTEROL INHALER 2 PUFF IH (08:39)
[2023-04-10] MEDS: BUDESONIDE 0.5 MG/2ML NEB NEB ×2 (08:50→22:05)
[2023-04-10] MEDS: SODIUM CHLORIDE 0.9 % (FLUSH) 10 ML SYRINGE 5 ML IVF ×2 (08:54→21:58)
--- NOTE | 2023-04-10 08:55 | PM.IMPN1 ---
Progress Note: A&P Assessment and plan (1) Acute hyponatremia: Problem details: - CXR and chest CT negative for mass, may be 2/2 decreased po intake in the setting of continued free water intake - holding home Lasix, Spironolactone - on IV NS + free water restriction, holding diuretics, follow sodium closely to ensure appropriate rate of correction Status: Acute (2) Rectal pain: Problem details: - source unclear; possibly hemorrhoids (no evidence of thrombosis), possible UPJ obstruction (however, renal ultrasound exhibits + urinary jet) - improved with stooling - trial of Roxana-Tammie 04/10 - bowel regimen and close monitoring, may need GI vs Gynecology vs pelvic PT followup Status: Acute (3) UPJ (ureteropelvic junction) obstruction: Problem details: - reassuring ultrasound Status: Suspected (4) Oxygen dependent: Problem details: - COPD with significant hypercarbia, on 2.5L/min continuously at home - RT following - reviewed hospice as an option, she and family are considering (PCP, Dr. Kern, also in agreement with referral if patient patient desires) Status: Chronic (5) COPD (chronic obstructive pulmonary disease): Problem details: - severe, oxygen dependent disease - minimally ambulatory 2/2 PATINO, typically uses a wheelchair - son also notes that patient is eating less 2/2 dypsnea Status: Chronic (6) Essential hypertension: Problem details: - BP on the low side, holding diuretics, continue to follow Status: Chronic (7) Hemorrhoids: Status: Acute Plan - per above - Lovenox and omeprazole for prophylaxis - son updated at bedside, questions answered Subjective Date Seen: 04/10/23 Interval history: Vicenta's rectal pain continues to improve, although she still has 1 area that is uncomfortable. She has received Bisacodyl suppository + Colace, has had normal stooling throughout the day and believes this is helping. Her sodium continues to rise quite slowly, she is asymptomatic from this. She remains severely dyspneic from her chronic COPD, we discussed potential hospice referral given her disease severity. Exam Narrative: Exam Narrative: GEN: Alert and oriented, appears chronically ill but nontoxic HEENT: EOMIs bilaterally, no scleral icterus CV: RRR, No concerning murmurs R: Decreased lung sounds throughout, very mild expiratory wheeze bilateral bases Ext: wwp, no concerning edema : On visualization of rectum, she points to hemorrhoidal skin tags is source of discomfort. There are no thrombosed hemorrhoids noted Neuro: Nonfocal Psych: Appropriate Const: Vital Signs, click to edit/add: Vital Signs - 24 hr 04/09/23 12:11 04/09/23 15:00 04/09/23 15:00 Temperature Pulse Rate [Left P ulse Oximeter] 72 Respiratory Rate 22 22 22 Blood Pressure [Ri ght Arm] Pulse Oximetry 90 94 Oxygen Delivery Me thod Nasal Cannula Nasal Cannula Oxygen Flow Rate 2.5 2.5 04/09/23 15:00 04/09/23 20:00 04/09/23 23:00 Temperature 97.9 F 97.8 F Pulse Rate [Left P ulse Oximeter] 72 64 71 Respiratory Rate 22 20 20 Blood Pressure [Ri ght Arm] 119/52 L 102/40 L Pulse Oximetry 94 92 Oxygen Delivery Me thod Nasal Cannula Nasal Cannula Oxygen Flow Rate 2.5 2.5 04/09/23 23:00 04/09/23 23:00 04/10/23 05:29 Temperature 97.9 F 97.8 F Pulse Rate [Left P ulse Oximeter] 71 73 Respiratory Rate 20 20 20 Blood Pressure [Ri ght Arm] 112/42 L 162/63 H Pulse Oximetry 93 93 89 Oxygen Delivery Me thod Nasal Cannula Nasal Cannula Nasal Cannula Oxygen Flow Rate 2.5 2.5 2.5 Labs Labs: Laboratory Results - last 24 hr 04/08/23 04/09/23 04/09/23 05:50 12:05 17:26 WBC RBC Hgb Hct MCV MCH MCHC RDW Coeff of Tonie Plt Count Neut % (Auto) Lymph % (Auto) [place] % (Auto) Eos % (Auto) Baso % (Auto) Neut # (Auto) Lymph # (Auto) [place] # (Auto) Eos # (Auto) Baso # (Auto) Abs Immat Gran (auto) Imm/Tot Granulo (auto) VBG pH VBG pCO2 VBG pO2 VBG HCO3 Sodium 124 L* 124 L* Potassium Chloride Carbon Dioxide BUN Creatinine Estimated Creat Clear Estimated GFR Glucose Calcium Ionized Calcium Susan Magnesium Stool Occult Blood Positive A 04/09/23 04/09/23 04/10/23 20:28 23:40 06:58 WBC 5.65 RBC 3.87 L Hgb 11.2 L Hct 36.2 MCV 94 MCH 29 MCHC 31 L RDW Coeff of Tonie 12.2 Plt Count 314 Neut % (Auto) 82.1 H Lymph % (Auto) 7.6 L [place] % (Auto) 9.2 Eos % (Auto) 0.2 Baso % (Auto) 0.4 Neut # (Auto) 4.60 Lymph # (Auto) 0.40 L [place] # (Auto) 0.50 Eos # (Auto) 0.01 Baso # (Auto) 0.02 Abs Immat Gran (auto) 0.03 Imm/Tot Granulo (auto) 0.5 VBG pH 7.447 H VBG pCO2 55 H VBG pO2 62.9 H VBG HCO3 38 H Sodium 123 L* 123 L* 123 L* Potassium 4.7 Chloride 84 L Carbon Dioxide 38 H BUN 12 Creatinine 0.2 L Estimated Creat Clear 35.55 Estimated GFR 122 Glucose 92 Calcium 9.1 Ionized Calcium Susan 1.13 Magnesium 1.7 Stool Occult Blood
[2023-04-10 11:40] VITALS: BP 170/74; PULSE 81; RESP 22; TEMP 36.8; O2SAT 92
[2023-04-10] MEDS: TRAMADOL HCL 50 MG TABLET PO (12:40)
[2023-04-10 15:25] LABS: Sodium* 124 mmol/L (135-149)
[2023-04-10 16:13] VITALS: BP 142/59; PULSE 73; RESP 24; TEMP 37.1; O2SAT 94
[2023-04-10] MEDS: ATORVASTATIN 10 MG TABLET 20 MG PO (18:10)
[2023-04-10] MEDS: DOXAZOSIN 4 MG TABLET PO (18:10)
[2023-04-10] MEDS: SODIUM CHLORIDE 1 GM TABLET 2 GM PO (18:10)
[2023-04-10] MEDS: LATANOPROST 0.005% OPHTH 1 DROP EYE-BOTH (18:13)
--- NOTE | 2023-04-10 18:49 | PC.NURSE ---
End of Shift: Patient pleasant and cooperative, A/O. Patient vitally stable, lungs diminished and with wheezes, BS WNL, IV running NS at 75. Patient on 2.5 L oxygen NC with sats in mid 90's. Patient is independent in room using commode that his near her while she is in recliner. Patient has rated pain at most a 6/10 and low 3/10, tylenol given twice and norco once. Patient has had multiple little stools, hard and soft. Patient has declined cream for anus as she does not want to use it until she is done having BM's. Patient urinating. Patient tolerating regular diet but with small appetite. Lower extremity edema +2.
[2023-04-10] MEDS: ENOXAPARIN 30 MG/0.3ML INJ SUBCUT (21:58)
[2023-04-10 22:00] VITALS: BP 157/77; PULSE 73; RESP 24; TEMP 37.1; O2SAT 92
[2023-04-10 23:00] VITALS: BP 121/61; PULSE 76; RESP 24; TEMP 36.6; O2SAT 92; O2SAT 95
[2023-04-11] MEDS: ACETAMINOPHEN 325 MG TABLET 650 MG PO (00:52)
[2023-04-11 03:00] VITALS: BP 143/54; PULSE 71; RESP 26; TEMP 36.4
[2023-04-11] MEDS: 0.9 % SODIUM CHLORIDE 1000 ml 1,000 ML 75 ML IV (03:03)
--- NOTE | 2023-04-11 05:46 | PC.NURSE ---
Pt pleasant and cooperative. Up with minimal assist to bedside commode. No stools tonight. VSS minimal pain in buttock but does state she has pain in her back that is chronic. She received it one time during the shift. She sat up in her recliner most of the night but did seem to sleep while there. She has 2+ pitting edema to bilat lower extremities.She is on 2.5 L O2 per nasal canula
[2023-04-11 07:00] VITALS: BP 151/63; PULSE 73; RESP 22; TEMP 36.6; O2SAT 97
[2023-04-11 07:27] LABS: Basophils Absolute Auto 0.02 K/uL (0.00-0.30); Basophils Percent Auto 0.4 % (0.0-3.0); Eosinophils Absolute Auto 0.03 K/uL (0.00-0.50); Eosinophils Percent Auto 0.6 % (0.0-7.0); Hemoglobin* 11.1 gm/dL (12.0-16.0); Immature Granulocytes Abs Auto 0.01 K/uL (0.00-0.30); Immature Granulocytes Pct Auto 0.2 %; Lymphocytes Percent Auto 7.8 % (20-44); Mean Corpuscular HGB Conc 31 gm/dL (32-36); Mean Corpuscular Hemoglobin 29 pg (26-34); Mean Corpuscular Volume 95 fL (80-100); Monocytes Percent Auto 9.2 % (0.0-11.0); Neutrophils Percent Auto 81.8 % (42.0-72.0); Platelet Count* 283 K/uL (140-440); RDW Coefficient of Variation % 12.2 % (11.5-15.5); Red Blood Count 3.79 m/uL (4.00-5.20); White Blood Count* 5.02 K/uL (4.50-11.00)
[2023-04-11 07:32] LABS: HCO3 VBG 35 mmol/L (21-28); PCO2 VBG 48 mmHG (40-50); PO2 VBG 40.6 mmHG (25-47); Slide Review Reflex No; pH VBG 7.464 (7.32-7.43)
[2023-04-11 08:03] LABS: Chloride* 91 mmol/L (96-114)
[2023-04-11 08:04] LABS: Potassium* 4.7 mmol/L (3.6-5.1)
[2023-04-11 08:06] LABS: Creatinine* 0.2 mg/dL (0.5-1.5); Est. Creatinine Clearance* 35.55; Estimated Glomerular Filt Rate 122 ml/min
[2023-04-11 08:07] LABS: Blood Urea Nitrogen* 14 mg/dL (7-30); Carbon Dioxide* 27 mmol/L (20-32); Glucose* 90 mg/dL (60-115)
[2023-04-11 08:12] LABS: Sodium* 124 mmol/L (135-149)
[2023-04-11] MEDS: TRAMADOL HCL 50 MG TABLET PO (08:59)
[2023-04-11] MEDS: OMEPRAZOLE 20 MG CAPSULE DR 40 MG PO (08:59)
[2023-04-11] MEDS: SODIUM CHLORIDE 1 GM TABLET 2 GM PO (08:59)
[2023-04-11] MEDS: BUDESONIDE 0.5 MG/2ML NEB NEB (09:00)
--- NOTE | 2023-04-11 09:54 | PM.DS1 ---
DS: Providers Provider Date Seen: 04/11/23 Date of admission: 04/08/23 21:44 Primary care physician: Reji Kern MD Admitting Clinician: Addie Chamberlain MD Consults: PT, OT, SW Attending Physician on discharge: Alla Brown MD Date of Discharge: 04/11/23 DS: Diagnosis Discharge Diagnosis (1) Oxygen dependent: Status: Chronic Problem details: - COPD with significant hypercarbia, on 2.5L/min continuously at home - RT following - reviewed hospice as an option, she and family would like to d/c home with hospice on 04/11 (2) COPD (chronic obstructive pulmonary disease): Status: Chronic Problem details: - severe, oxygen dependent disease - minimally ambulatory 2/2 PATINO, typically uses a wheelchair - son also notes that patient is eating less 2/2 dypsnea (3) Acute hyponatremia: Status: Acute Problem details: - CXR and chest CT negative for mass, may be 2/2 decreased po intake in the setting of continued free water intake - held home Lasix, Spironolactone - initiated sodium tablets, low dose IVFs (4) Rectal pain: Status: Acute Problem details: - source unclear; possibly hemorrhoids (no evidence of thrombosis), possible UPJ obstruction (however, renal ultrasound exhibits + urinary jet) - improved with stooling - trial of Roxana-Tammie 04/10 (5) UPJ (ureteropelvic junction) obstruction: Status: Suspected Problem details: - reassuring ultrasound (6) Essential hypertension: Status: Chronic Problem details: - BP on the low side, holding diuretics, continue to follow (7) Hemorrhoids: Status: Acute DS: Summary Hospital Course Hospital Course: Princess is a very pleasant 77-year-old female with chronic oxygen-dependent COPD who presented to the hospital for rectal pain. Initial imaging was negative for acute process; she was found to have hyponatremia (Na of 121) and was admitted for this and pain control. Sodium improved slightly during stay with IV fluids and free water intake restriction. Salt tabs were also ordered. During stay, it was evident that patient's COPD is end-stage with severe disease, dyspnea upon any amount of exertion, hypercarbia, and cachexia/anorexia. Discussed options for discharge with patient and family, as well as PCP; after discussion, they elect to go home with hospice. Status at Discharge Functional status at discharge: wheelchair bound Time Spent with Patient Time attestation: Total time spent providing and/or coordinating discharge services: Time spent: Greater than 30 minutes Specific discharge activities: medication management, Education, hospice coordination Exam Narrative: Exam Narrative: GEN: Alert, delightful and sitting in bedside chair, wearing supplemental oxygen HEENT: EOMIs bilaterally, no scleral icterus CV: RRR, No concerning murmurs R: Decreased sounds throughout, mild apical wheeze Ext: trace edema BLE Skin: No concerning skin lesions or rashes on exposed skin Neuro: Nonfocal Psych: Appropriate Const: Vital Signs, click to edit/add: Vital Signs - 24 hr 04/10/23 11:40 04/10/23 16:13 04/10/23 16:13 Temperature 98.3 F 98.8 F Pulse Rate [Left P ulse Oximeter] 81 73 73 Respiratory Rate 22 24 24 Blood Pressure [Le ft Arm] 170/74 H Blood Pressure [Ri ght Arm] 142/59 H Pulse Oximetry 92 94 Oxygen Delivery Me thod Nasal Cannula Nasal Cannula Oxygen Flow Rate 2.5 2.5 04/10/23 16:13 04/10/23 22:00 04/10/23 23:00 Temperature 98.8 F Pulse Rate [Left P ulse Oximeter] 73 Respiratory Rate 24 24 24 Blood Pressure [Le ft Arm] 157/77 H Blood Pressure [Ri ght Arm] Pulse Oximetry 94 92 92 Oxygen Delivery Me thod Nasal Cannula Nasal Cannula Nasal Cannula Oxygen Flow Rate 2.5 2.5 2.5 04/10/23 23:00 04/11/23 03:00 04/11/23 07:00 Temperature 98 F 97.5 F L Pulse Rate [Left P ulse Oximeter] 76 71 Respiratory Rate 24 26 H Blood Pressure [Le ft Arm] 121/61 143/54 H Blood Pressure [Ri ght Arm] Pulse Oximetry 95 97 Oxygen Delivery Me thod Nasal Cannula Nasal Cannula Nasal Cannula Oxygen Flow Rate 2.5 2.5 2.5 04/11/23 07:00 04/11/23 07:00 Temperature 97.8 F Pulse Rate [Left P ulse Oximeter] 73 73 Respiratory Rate 22 22 Blood Pressure [Le ft Arm] Blood Pressure [Ri ght Arm] 151/63 H Pulse Oximetry 97 Oxygen Delivery Me thod Nasal Cannula Oxygen Flow Rate 2.5 DS: Data Data Completed and Pending Labs on day of discharge: Labs from last 24 hours 04/11/23 04/10/23 07:10 14:27 WBC 5.02 RBC 3.79 L Hgb 11.1 L Hct 36.0 MCV 95 MCH 29 MCHC 31 L RDW Coeff of Tonie 12.2 Plt Count 283 Neut % (Auto) 81.8 H Lymph % (Auto) 7.8 L [place] % (Auto) 9.2 Eos % (Auto) 0.6 Baso % (Auto) 0.4 Neut # (Auto) 4.10 Lymph # (Auto) 0.40 L [place] # (Auto) 0.50 Eos # (Auto) 0.03 Baso # (Auto) 0.02 Abs Immat Gran (auto) 0.01 Imm/Tot Granulo (auto) 0.2 VBG pH 7.464 H VBG pCO2 48 VBG pO2 40.6 VBG HCO3 35 H Sodium 124 L* 124 L* Potassium 4.7 Chloride 91 L Carbon Dioxide 27 BUN 14 Creatinine 0.2 L Estimated Creat Clear 35.55 Estimated GFR 122 Glucose 90 Calcium 9.0 Discharge Plan Discharge Disposition: Xfer Home- (Hospice) Date of Admission: 04/08/23 21:44 Attending Provider on Discharge: Alla Brown Primary Care Provider: Reji Kern Condition: Unchanged Anticipated Discharge Date/Time: 04/11/23 09:45 Discharge Medications: New hydrocortisone [Anusol-HC] 2.5 % Cream With Perineal Applicator 1 applic topical QID PRNQty: 30 0RF Rx Instructions: prn hemorrhoids sodium chloride 1,000 mg Tablet,Soluble 2,000 mg PO TIDWM Qty: 60 0RF docusate sodium [Dulcolax Stool Softener (dss)] 100 mg capsule 100 mg PO BID Qty: 60 0RF Continued tramadol 50 mg tablet 50 - 100 mg PO BID Rx Instructions: states taking 1 in the morning and 2 in the evening furosemide 20 mg tablet 20 mg PO QAM albuterol sulfate [Ventolin HFA] 90 mcg/actuation HFA aerosol inhaler 1 - 2 puff INHALATION Q4H PRN (Reason: dyspnea) budesonide-formoterol [Symbicort] 160-4.5 mcg/actuation HFA aerosol inhaler 2 puff INHALATION BID Discontinued latanoprost 0.005 % drops 1 drp ophthalmic (eye) QPM atorvastatin 20 mg tablet 20 mg PO QPM lisinopril 20 mg tablet 20 mg PO DAILY omeprazole 40 mg capsule,delayed release(DR/EC) 40 mg PO DAILY spironolactone 25 mg tablet 12.5 mg PO QAM doxazosin 4 mg tablet 4 mg PO QPM Discharge Orders: Discharge Order (Routine); Ordered 04/11/23 Ordered By: Alla Brown Additional Instructions: Hospice will come see you at home this afternoon. New medications (stool softener, cream, and sodium tablets) at [facility]. Activity Level: No strenuous activity Discharge Diet: High Protein/High Calorie Follow Up Appointments: Reji Kern MD [Primary Care Provider] - (as needed) Forms: [facility] Info Instructions
--- NOTE | 2023-04-11 10:21 | PC.SOCIAL ---
Discharge planning- met with pt in room to discuss discharge plans. Pt would like to open hospice services with [facility]. Phone call to Ludy at ext. [phone]. [facility] can open services today at 1:00 pm at the pt's home. Discussed with pt and she would like to proceed. Updated MD, charge nurse, and nurse assigned. Nurse assigned called pt's and he will pecan picker pt around 11:00 am to 11:30 am today. Social work will follow up as needed.
[2023-04-11 11:10] VITALS: RESP 22; O2SAT 92
--- NOTE | 2023-04-11 11:12 | RESP.RT ---
Patient sitting up in chair, finishing DuoNeb treatment, appears comfortable. On NC 2.5 Lpm, same as Home Oxygen. Respiratory rate 22/minute, with pursed breathing and prolong expiratory phase. Patient better, clearer voice this AM, weak ineffective cough. Right lung field with expiratory wheeze, left diminished, no wheeze noted.
== END 2023-04-11 11:44 | disposition hospice, home (50) | DRG 393 ==
LOC: ED 20:15 → MEDSURG 20:55
PROVIDERS: Family Medicine; Admitting Provider Family Medicine; Emergency Provider Family Medicine; PCP Family Medicine; Visit Provider Family Medicine
DX: K62.89 Other specified diseases of anus and rectum (principal); J96.22 Acute and chronic respiratory failure with hypercapnia; J44.1 Chronic obstructive pulmonary disease with (acute) exacerbation; E87.1 Hypo-osmolality and hyponatremia; R64 Cachexia; Z68.1 Body mass index [BMI] 19.9 or less, adult; Z99.81 Dependence on supplemental oxygen; K64.9 Unspecified hemorrhoids; I10 Essential (primary) hypertension; N13.5 Crossing vessel and stricture of ureter without hydronephrosis; Z87.891 Personal history of nicotine dependence; I44.7 Left bundle-branch block, unspecified
CPT/HCPCS: 36415; 71045; 71250; 74177; 76775; 80048; 80053; 81001; 82270; 82330; 82803; 83605; 83735; 84295; 85025; 86140; 94640; 97162; 97165; 97530; 99284; 99285; A9270; J1650; J2405; J3010; J7030; J7050; J7131; J7626; Q9967